=== PATIENT | female | born 1990 | race Caucasian/White ===

== ENCOUNTER 2025-02-07 06:16 | Day surgery (SDC) | payer OTHER, SELFPAY ==
[2025-01-28 07:37] VITALS: BMI 30.8
[2025-02-07] VITALS (14 sets, daily range): BP systolic 125–150; BP diastolic 71–89; PULSE 76–122; RESP 10–95; TEMP 36.5–37.1; O2SAT 12–99; BMI 32.2
[2025-02-07] MEDS: LACTATED RINGERS 1,000 ML 42 ML IV ×2 (07:03→11:47)
[2025-02-07] MEDS: ACETAMINOPHEN IV 1,000 MG/100 ML VIAL 400 MG IV (07:12)
[2025-02-07] MEDS: SCOPOLAMINE 1 PATCH TOP (07:17)
--- NOTE | 2025-02-07 07:27 | PM.PREOP ---
Pre-operative Note COVID-19 COVID-19 status: Not tested Interval Note History & Physical reviewed/Exam performed by Physician: Yes Changes to H&P: No
[2025-02-07] MEDS: CEFAZOLIN 2 GM/100 ML PREMIX 100 ML IV (09:49)
--- NOTE | 2025-02-07 10:18 | SUR.OPER ---
Supine on padded OR bed, head on pillow, arms secured on padded arm boards at <90 degrees abduction, legs uncrossed, safety belt at abdomen, tape over blanket over left lower leg. Right leg under control of surgeon.
[2025-02-07] MEDS: BUPIVACAINE 0.25% (PF) VIAL 30 ML INJ (10:35)
--- NOTE | 2025-02-07 10:47 | SUR.PREOP ---
Block start time 0930, with a time out at 0926. Monitoring initiated and maintained throughout procedure. Medications given by anesthesia provider. Patient remained stable throughout procedure, no adverse reactions noted. Block end time 0934.
[2025-02-07] MEDS: ONDANSETRON 4 MG/2 ML INJ IV (11:59)
[2025-02-07] MEDS: hydrOXYzine 50 MG/ML INJ 25 MG IM (11:59)
[2025-02-07] MEDS: OXYCODONE IR 5 MG TABLET PO ×2 (12:04→13:11)
[2025-02-07] MEDS: HYDROMORPHONE 1 MG INJ IV (13:26)
[2025-02-07] MEDS: ACETAMINOPHEN 325 MG TABLET 650 MG PO (13:26)
--- NOTE | 2025-02-07 14:03 | P.OP_ITS ---
Operative Date/Time/Diagnoses Date of procedure: 02/07/25 Time of procedure: 10:15 Pre-op diagnosis: right knee acl tear and meniscus tear Post-op diagnosis: other (Right knee acl tear) Procedure & Clinicians Procedure: Preoperative diagnosis: Right Knee Anterior Cruciate Ligament tear and Medial meniscus tear Procedure performed: Anterior Cruciate Ligament Reconstruction with hamstrings autograft Postoperative diagnosis: Right knee acl tear Primary Surgeon: Echo Dominguez DO Sharepoint Web Developer: Hemal Camejo MD Anesthesia: General with adductor canal block EBL: 20 ml Tourniquet: ?77 minutes @ 250 mmHg Implants: 1)? Arthrex ACL Tightrope RT.? 2)? Arthrex 9x30 mm interference screw.? Indication For Surgery: ?See Pre-op H&P Examination Under Anesthesia: ROM equal to the contralateral side. Grade IIB Daniel Stable to varus and valgus stressing at 0 & 30 degrees. No mechanical sensations Diagnostic Arthroscopy: Loose bodies: None Synovium: normal Patella cartilage: intact? Trochlear cartilage: intact Medial femoral condyle cartilage: intact Medial tibial plateau cartilage: intact Medial meniscus: intact ACL: torn PCL: intact Lateral femoral condyle cartilage: intact Lateral tibial plateau cartilage: intact Lateral meniscus: intact Procedure in Detail: The patient was met in the pre-operative hold area. Consent was verified and operative extremity was signed. The patient then met with anesthesia and an adductor canal block was performed.? The patient was brought back to the operating room. The patient was placed supine position on the operating table. A general anesthetic was administered. A well-padded tourniquet was placed on the thigh. An exam under anesthesia was performed with the above findings.? The lower extremity was then prepped and draped in the usual sterile fashion. A timeout was performed per protocol. All members of the operating team were in agreement, and we proceeded. The Esmarch was used to exsanguinate the limb and the tourniquet was inflated. An 11 blade scalpel was used to make an anterolateral arthroscopic portal. The arthroscope was introduced into the knee and the anteromedial portal was created under direct visualization using needle localization. A diagnostic arthroscopy was performed with the above-stated findings.? The notch was cleared. ?The gracilis and semitendinosus were harvested in the typical fashion.? A 3 cm incision was made midway between the tibial tubercle and posterior aspect of the medial tibia.? Dissection was taken down to the sartorial fascia.? The underlying hamstring tendons were identified.? A hockey-stick type incision was made and the gracilis and semitendinosus were identified and closed tendon stripper was used to strip both tendons after the fascial attachments were removed.? The graft was prepped and placed on tension and wrapped in a moist gauze and held on the back table until needed. The femur was prepared using a shaver and radiofrequency wand until it was cleared of all tissue and back wall could be seen.? Care was taken to leave the PCL and the posterior capsule intact.? The remnant ACL tissue was debrided from the tibia and the center of the ACL insertion was marked.? The femoral drill guide was brought into the joint and placed into position to ensure the femoral tunnel was in the center of the muckleshoot ACL footprint and had an adequate back wall.? A lateral incision was made through the skin and the IT band.? The femoral guide was brought down to bone.? The flipcutter was brought into the joint in the center of the guide.? It was flipped and the lateral wall was scored to ensure proper position.? A 20mm tunnel was drilled.? The flipcutter was brought back into the joint, flipped, and removed from the knee.? A suture was passed with the fiberstick.? The tibial guide was then brought in and the guide wire was brought into the center of the muckleshoot ACL footprint.? It was 7mm anterior to the PCL, just off the medial cartilage, and inline with the posterior aspect of the anterior horn of the lateral meniscus.? The wire was overdrilled, taking care to protect the skin.? The passing suture was brought out the tibia. The tightrope sutures were then passed through the tunnels and out the lateral femur.? The graft was then brought into the joint and positioned correctly for seating into the femur.? With gentle pressure the graft was passed into the femur.? With tension on the tightrope button it was tightened until it rested on the lateral femur.? This was confirmed with flouroscopy. The graft was brought into the tunnel. The graft was then cycled 20 times and had appropriate tension, with slight tightening at full extension.? The knee was placed into 15 degrees of flexion, a posterior drawer applied and an interference screw was placed into the tibia over a nitinol wire.? Fixation was excellent.? The wire was removed and was intact.? Full ROM and stable Grade I Daniel were confirmed.? Final images showing excellent graft position and tension were taken. The wounds were irrigated.? The incisions were closed with buried vicryl and the skin was closed with Nylon sutures. ?A sterile dressing was applied. The patient was awakened and transferred to the recovery room in stable condition. Postoperative Plan: Same day discharge No weight bearing; brace locked in extension. Remove dressing in [address]aids over incision sites. Physical therapy to start after surgery. Do not submerge wound until 4 weeks. Follow up at 2 weeks for suture removal. Same procedure(s) as scheduled: No Surgeon: Echo Dominguez Sharepoint Web Developer: Hemal Camejo Anesthesia Type: General and Peripheral nerve block Operative Notes Findings: see above Closure Type: primary Specimen(s): none sent Applied: none Estimated Blood Loss (mL): 20 Complications: none Post-operative Condition: stable Disposition: PACU
== END 2025-02-07 14:37 | disposition home or self-care (01) ==
PROVIDERS: PCP Physician Assistant; Referring Provider Orthopaedic Surgery; Visit Provider Orthopaedic Surgery
PROC: (CPT 29888; principal; 2025-02-07 07:45)
DX: S83.511A Sprain of anterior cruciate ligament of right knee, initial encounter (principal); X50.0XXA Overexertion from strenuous movement or load, initial encounter; Y93.23 Activity, snow (alpine) (downhill) skiing, snowboarding, sledding, tobogganing and snow tubing
CPT/HCPCS: 29888; 64450; C1713; J0131; J0690; J1100; J1171; J1885; J2250; J2405; J2704; J3010; J3410